=== PATIENT | female | born 1970 | race Caucasian/White ===

== ENCOUNTER 2018-09-26 05:40 | Day surgery (SDC) | payer OTHER ==
[~2018-09-26] VITALS: Ht 162.6 cm; Wt 90.7 kg
[~2018-09-26 05:40] MED LIST: IBUPROFEN200 MG PO; SPIRONOLACTONE1 EACH PO; VENLAFAXINE HCL75 MG PO
[2018-09-26] MEDS ORDERED: DICLOFENAC SODI75 MG PO (08:10)
[2018-09-26] MEDS ORDERED: OXYCODONE HCL5 MG PO (08:10)
--- NOTE | 2018-09-26 08:15 | NUR ---
09/26/18 0814 Sheets,Lilly 0807 PT ARRIVED TO PACU ON 6L VIA MASK. PT NONAROUSABLE TO PAINFUL STIMULI. 0808 JAW THRUST NEEDED TO MAINTAIN AIRWAY AND PT HEAD TURNED TO RIGHT AND PT ABLE TO MAINTAIN AIRWAY. RESP EVEN AND UNLABORED.
--- NOTE | 2018-09-26 08:35 | NUR ---
PT IS BACK TO FROM PACU. SHE IS DROWSY, BUT WILL WAKE UP TO VERBAL STIMULI. SHE IS REPORTING NO PAIN AT THIS TIME. CALL LIGHT WITHIN REACH. NO ADDITIONAL NEEDS AT THIS TIME.
--- NOTE | 2018-09-26 09:31 | NUR ---
PT ALERT, ORIENTED AND SUPPORTED BY FAMILY. PT IS PLEASANT, SEEMS PREPARED. SHE DID REQUES PRAYER, WILL FOLLOW NEEDED
--- NOTE | 2018-09-26 09:51 | NUR ---
PT WOULD LIKE TO GET UP TO USE THE RESTROOM. SHE IS ASSISTED UP OOB WITH STAND BY ASSIST. SHE IS ABLE TO BEAR SOME WEIGHT ON HER LEFT LEG WITH MINIMAL PAIN. SHE IS ABLE TO MAKE IT TO THE RESTROOM. SHE AMBULATES HERSELF BACK TO BED.
--- NOTE | 2018-09-26 10:20 | NUR ---
AMY 1005: PT HAS MET DC CRITERIA. SHE WOULD LIKE TO GO HOME AT THIS TIME. SHE IS EDCUATED ON HOW BEST TO GET DRESSED AND TO PEN HER CURTAIN WHEN SHE IS READY.
--- NOTE | 2018-09-26 10:21 | NUR ---
PT IS GIVEN VEBAL DC INSTRUCTIONS WITH HER MOM AND SISTER PRESENT. THEY ALL VERBALIZE UNDERSTANDING. QUESTIONS ARE ASKED AND ANSWERED. SHE IS TAKEN TO THE VEHICLE VIA WC. SHE IS ABLE TO TRANSFER HERSELF FROM WC TO VEHICLE.
--- NOTE | 2018-09-27 07:49 | OR ---
[facility] [address] [place] [address], [place] [address] Signed DATE OF OPERATION: 09/26/2018 SURGEON: Gerber Garcia MD PREOPERATIVE DIAGNOSIS: Medial meniscus tear, left knee. POSTOPERATIVE DIAGNOSES: 1. Medial meniscus tear, left knee. 2. Lateral meniscus tear, left knee. PROCEDURE PERFORMED: Left knee arthroscopy with partial medial and lateral meniscectomies. ANESTHESIA: General. ARTIFICIAL INTELLIGENCE SPECIALIST: CATHY Rivera. BRIEF HISTORY: Tonio is a 47-year-old female with pain and locking in the knee. MRI is consistent with a large posteromedial meniscus tear with a flap. Risks and benefits of operative treatment discussed with her and she elected to proceed. Once consent was obtained, she was taken to operating room and after adequate anesthesia, she was placed on the operating room table. All downside pressure points well padded. The right leg was flexed, abducted, and externally rotated in well-padded leg galindo. The left was placed in well-padded proximal thigh leg galindo and portal sites were pre-injected using 0.25% Marcaine with epinephrine under alcohol prep. The leg was then prepped and draped in a standard sterile fashion and standard inferolateral and superolateral portal was made, and the scope was introduced in the knee. 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 The patella tracked well. Medial and lateral gutters showed mild osteophytosis. There was some chondrocalcinosis in the synovium, however, this may represent small cartilage fragments as well. Lateral compartment was intact. ACL and PCL were intact. Medial compartment showed a complex tear with two large flaps on the undersurface of the meniscus. These were unstable. There was grade 2 chondromalacia to the tibia, grade 2-3 on the femur side. Electronically Signed By: GERBER GARCIA MD 09/27/18 0749 PATIENT NAME: TONIO AMATO OPERATIVE REPORT DATE OF : 68 REPORT #: [id number] PHYSICIAN: GERBER GARCIA MD PCP: REED COON MD REPORT IS CONFIDENTIAL AND NOT TO BE RELEASED WITHOUT AUTHORIZATION [facility] [address] [place] [address], [place] [address] Signed DESCRIPTION OF OPERATION: An inferomedial portal was made after localization using a spinal needle. The straight and curved biters were then used to trim the meniscus tear back to stable rim. Both flaps were completely debrided. The transitions of both menisci were then smoothed out and feathered. All debris was evacuated. Scope was withdrawn. Portals were closed with 3-0 nylon and the knee was injected with 60 mg Toradol at the end of the case. The wound was dressed with Adaptic, ABD, and Isaac wrap. She tolerated the procedure well. All sponge, needle, and instrument counts were correct. Gerber Garcia MD BA/ISMAL /[id number] Copies: ~ Electronically Signed By: GERBER GARCIA MD 09/27/18 0749 PATIENT NAME: TONIO AMATO OPERATIVE REPORT DATE OF : 68 REPORT #: [id number] PHYSICIAN: GERBER GARCIA MD PCP: REED COON MD REPORT IS CONFIDENTIAL AND NOT TO BE RELEASED WITHOUT AUTHORIZATION
== END 2018-09-26 10:10 | disposition home or self-care (01) ==
LOC: DS 05:40 → OPS 05:40 → DS 08:45 → OPS 08:45
PROVIDERS: Specialist
PROC: 0SBD4ZZ Excision of Left Knee Joint, Percutaneous Endoscopic Approach (ICD-10-PCS; principal; 2018-09-26 06:45)
DX: S83.232A Complex tear of medial meniscus, current injury, left knee, initial encounter (principal); S83.282A Other tear of lateral meniscus, current injury, left knee, initial encounter; M94.262 Chondromalacia, left knee; E66.9 Obesity, unspecified; Z88.5 Allergy status to narcotic agent; Z79.899 Other long term (current) drug therapy; Z68.34 Body mass index [BMI] 34.0-34.9, adult
CPT/HCPCS: 01400; J0690; J1100; J1885; J2250; J2405; J2704; J7120